=== PATIENT | female | born 1960 | race Caucasian/White ===

== ENCOUNTER 2020-08-10 04:59 | Emergency (ER) | payer OTHER, MEDICARE ==
[2020-08-10] MEDS ORDERED: Ondansetron ODT 8 MG TAB ONE (05:34)
[2020-08-10] MEDS ORDERED: cloNIDine 0.1 MG TAB ONE (05:34)
[2020-08-10] MEDS ORDERED: Lorazepam 1 MG TAB ONE (06:15)
[2020-08-10] MEDS ORDERED: Proparacaine 0.5% Opth 15 ML BOT ONE (06:50)
[2020-08-10] MEDS ORDERED: Fluorescein Opthalmic Strip ONE (06:50)
--- NOTE | 2020-08-12 14:10 | EKG ---
Test Reason : Blood Pressure : / mmHG Vent. Rate : 065 BPM Atrial Rate : 065 BPM P-R Int : 178 ms QRS Dur : 088 ms QT Int : 420 ms P-R-T Axes : 076 080 063 degrees QTc Int : 436 ms Sinus rhythm with Premature supraventricular complexes Anteroseptal infarct , age undetermined Abnormal ECG Confirmed by HEENA CHAO ([id number]), state editor JOSSELINE REAVES ([id number]) on 08/12/2020 2:10:05 PM Referred By: Confirmed By:HEENA CHAO
== END 2020-08-10 07:10 | disposition home or self-care (01) ==
LOC: ERS 04:59
DX: S05.02XA Injury of conjunctiva and corneal abrasion without foreign body, left eye, initial encounter (principal); I10 Essential (primary) hypertension; F41.9 Anxiety disorder, unspecified; J44.9 Chronic obstructive pulmonary disease, unspecified; E78.5 Hyperlipidemia, unspecified; E03.9 Hypothyroidism, unspecified; E11.9 Type 2 diabetes mellitus without complications; X58.XXXA Exposure to other specified factors, initial encounter
CPT/HCPCS: 93005; Q0162

== ENCOUNTER 2021-04-25 06:53 | Outpatient (CLI) | payer MEDICARE, MEDICAID | END 2021-04-25 06:54 | disposition home or self-care (01) | LOC: BICULT 06:53 | PROVIDERS: ATTEND Specialist | DX: R97.0 Elevated carcinoembryonic antigen [CEA] (principal); N28.1 Cyst of kidney, acquired | CPT/HCPCS: 76856; 93975 ==

== ENCOUNTER 2021-05-11 08:56 | Outpatient (CLI) | payer MEDICARE, MEDICAID | END 2021-05-11 08:57 | disposition home or self-care (01) | LOC: BICCT 08:56 | PROVIDERS: ATTEND Specialist | DX: R97.0 Elevated carcinoembryonic antigen [CEA] (principal) | CPT/HCPCS: 74176 ==

== ENCOUNTER 2021-06-22 06:09 | Day surgery (SDC) | payer MEDICARE, MEDICAID ==
[2021-06-21 10:40] VITALS: BMI 16.0
[2021-06-22] MEDS ORDERED: Ketamine 50 MG/ML (10ML VIAL) ONE (07:29)
[2021-06-22] MEDS ORDERED: PROPOFOL 200 MG/20 ML VIAL ONE (07:30)
[2021-06-22] MEDS ORDERED: ePHEDrine 50 MG/ML VIAL ONE (07:30)
[2021-06-22] MEDS ORDERED: ePHEDrine Sulfate 50 MG/10 ML VIAL ONE (08:23)
== END 2021-06-22 09:10 | disposition home or self-care (01) ==
LOC: SDC 06:09
PROVIDERS: ATTEND Internal Medicine Gastroenterology
PROC: 0DBP8ZX Excision of Rectum, Via Natural or Artificial Opening Endoscopic, Diagnostic (ICD-10-PCS; principal; 2021-06-22)
PROC: 0DB58ZX Excision of Esophagus, Via Natural or Artificial Opening Endoscopic, Diagnostic (ICD-10-PCS; 2021-06-22)
DX: K63.5 Polyp of colon (principal); R19.5 Other fecal abnormalities; K62.89 Other specified diseases of anus and rectum; K64.8 Other hemorrhoids; K59.00 Constipation, unspecified; K44.9 Diaphragmatic hernia without obstruction or gangrene; K21.00 Gastro-esophageal reflux disease with esophagitis, without bleeding; K31.89 Other diseases of stomach and duodenum; E11.9 Type 2 diabetes mellitus without complications; E78.00 Pure hypercholesterolemia, unspecified; I10 Essential (primary) hypertension; F17.210 Nicotine dependence, cigarettes, uncomplicated; J44.9 Chronic obstructive pulmonary disease, unspecified; Z79.82 Long term (current) use of aspirin; Z79.899 Other long term (current) drug therapy; Z86.73 Personal history of transient ischemic attack (TIA), and cerebral infarction without residual deficits; Z88.0 Allergy status to penicillin; Z88.8 Allergy status to other drugs, medicaments and biological substances
CPT/HCPCS: 88305; J2704; J3490

== ENCOUNTER 2023-08-11 08:10 | Outpatient (CLI) | payer MEDICARE, MEDICAID | END 2023-08-11 08:11 | disposition home or self-care (01) | LOC: CT 08:10 | PROVIDERS: ATTEND Radiology Radiation Oncology | DX: Z12.2 Encounter for screening for malignant neoplasm of respiratory organs (principal); Z87.891 Personal history of nicotine dependence | CPT/HCPCS: 71271 ==